=== PATIENT | male | born 1985 | race Caucasian/White ===

== ENCOUNTER 2023-08-29 17:55 | Emergency (ER) | payer BC ==
[2023-08-29] MEDS ORDERED: Sodium Chloride 0.9% 10 ML Syringe FLUSH PRN (18:24)
[2023-08-29] MEDS ORDERED: Sodium Chloride 0.9% 2.5 ML Syringe FLUSH PRN (18:24)
[2023-08-29] MEDS ORDERED: Sodium Chloride 0.9% 1,000 ML IV STA (18:48)
[2023-08-29] MEDS ORDERED: Alum Hydro/Mag Hydro/Simeth XS 15 ML, Lidocaine 2% 5 ML PO STA ×2 (18:48)
[2023-08-29] MEDS ORDERED: Ketorolac 30 MG/ML SDV IVPUSH STA (18:52)
[2023-08-29] MEDS ORDERED: Pantoprazole 40 MG in Sodium Chloride 0.9% 10 ML IVPUSH STA (18:53)
[2023-08-29 19:14] LABS: BASOPHILS ABSOLUTE AUTO 0.03 K/uL (0.00-0.20); BASOPHILS PERCENT AUTO 0.3 % (0.0-1.0); EOSINOPHILS ABSOLUTE AUTO 0.09 K/uL (0.00-0.45); HEMATOCRIT 46.6 % (42.0-52.0); HEMOGLOBIN 16.2 g/dL (14.0-18.0); IMMATURE GRAN ABSOLUTE AUTO 0.01 K/uL (0.00-0.05); IMMATURE GRAN PERCENT AUTO 0.1 % (0.0-0.4); LYMPHOCYTES ABSOLUTE AUTO 1.16 K/uL (1.00-4.80); LYMPHOCYTES PERCENT AUTO 12.7 % (24.0-44.0); MEAN CORPUSCULAR HEMOGLOBIN 31.3 pg (28.0-32.0); MEAN CORPUSCULAR HGB CONC 34.8 g/dL (32.0-36.0); MEAN CORPUSCULAR VOLUME 90.1 fL (83.0-99.0); MEAN PLATELET VOLUME 9.3 fL (9.4-12.4); MONOCYTES ABSOLUTE AUTO 0.72 K/uL (0.00-0.80); MONOCYTES PERCENT AUTO 7.9 % (0.0-8.0); NEUTROPHILS ABSOLUTE AUTO 7.13 K/uL (1.80-7.70); PLATELET COUNT,PLT 354 K/uL (150-400); RED BLOOD CELL COUNT 5.17 M/uL (4.52-5.90); WHITE BLOOD CELL COUNT,WBC 9.14 K/uL (3.9-11.3)
[2023-08-29 19:43] LABS: A/G RATIO 1.2 (0.9-1.6); ALBUMIN 4.4 g/dL (3.4-5.0); BILIRUBIN TOTAL 0.4 mg/dL (0.2-1.0); CALCIUM 9.2 mg/dL (8.5-10.1); CARBON DIOXIDE,CO2 31.3 mmol/L (21.0-32.0); CREATININE 1.3 mg/dL (0.8-1.3); EST CRCL DRUG DOSING (CG) 70.89 mL/min; PROTEIN TOTAL,TP 8.2 g/dL (6.4-8.2)
[2023-08-29 19:53] LABS: CORONAVIRUS COVID-19 NAA NEGATIVE (NEGATIVE); INFLUENZA A NAA POSITIVE (NEGATIVE); INFLUENZA B NAA NEGATIVE (NEGATIVE)
[2023-08-29] MEDS ORDERED: Iopamidol 755 Mg/ML 100 ML Bottle IVPUSH ONE (20:15)
== END 2023-08-29 22:07 | disposition home or self-care (01) ==
LOC: MW.ED 17:55
DX: J10.1 Influenza due to other identified influenza virus with other respiratory manifestations (principal); K76.9 Liver disease, unspecified; Z20.822 Contact with and (suspected) exposure to COVID-19
CPT/HCPCS: 0240U; 36415; 74177; 80053; 83690; 85025; 96361; 96374; 96375; 99284; A9270; C9113; J1885; J3490; J7030; Q9967

== ENCOUNTER 2023-10-10 09:07 | Emergency (ER) | payer SELFPAY ==
[2023-10-10] MEDS ORDERED: methylPREDNISolone Sodium Succinate 125 MG/2 ML SDV IM ONE (09:12)
[2023-10-10] MEDS ORDERED: Famotidine 20 MG/2 ML SDV IVPUSH ONE (09:13)
[2023-10-10] MEDS ORDERED: diphenhydrAMINE 50 MG Cap PO ONE (09:16)
== END 2023-10-10 13:10 | disposition home or self-care (01) ==
LOC: MW.ED 09:07
DX: T78.40XA Allergy, unspecified, initial encounter (principal); Z91.041 Radiographic dye allergy status
CPT/HCPCS: 96372; 96374; 99283; A9270; J2930; J3490

== ENCOUNTER 2025-08-31 13:10 | Emergency (ER) | payer OTHER, BC ==
[2025-08-31 15:37] LABS: APPEARANCE,URINE CLEAR; GLUCOSE,URINE NEGATIVE (NEGATIVE); OCCULT BLOOD,URINE NEGATIVE (NEGATIVE)
[2025-08-31 15:53] LABS: EPITHELIAL CELLS,URINE RARE (NONE-FEW)
[2025-08-31 17:06] LABS: C. TRACHOMATIS BY PCR NOT DETECTED; N. GONORRHOEAE BY PCR NOT DETECTED
== END 2025-08-31 17:36 | disposition home or self-care (01) ==
LOC: MW.ED 13:10
DX: M54.2 Cervicalgia (principal); R35.0 Frequency of micturition; Z88.8 Allergy status to other drugs, medicaments and biological substances; V49.49XA Driver injured in collision with other motor vehicles in traffic accident, initial encounter
CPT/HCPCS: 72125; 72125-26; 72128; 72128-26; 81001; 87491; 87591; 99284